=== PATIENT | male | born 1945 | race Native Hawaiian/Other Pacific Islander ===

== ENCOUNTER 2017-01-09 15:01 | Observation (INO) | payer MEDICARE, MEDICAID ==
[~2017-01-09] VITALS: Ht 172.7 cm; Wt 79.0 kg
[~2017-01-09 15:01] MED LIST: 1-ME1LIQ PO; ASPI81TA82 PO; CARV25TA PO; LOSA50TA PO; MACR100C PO; OMEP20TA PO; PRAS10TA PO; RANO500 PO; ROSU20 PO; SYNT25TA PO; XANA0.5T PO
[2017-01-09 15:02] VITALS: BP 116/67; PULSE 64; RESP 16; TEMP 98.6; O2SAT 99
--- NOTE | 2017-01-09 15:16 | PD ---
Physical Exam Date Seen by Provider: Jan 09, 2017 Time Seen by Provider: 15:12 Narrative 71 YOIM C/O FEELING FAINT. I MONTH AGO SYNCOPE SEEN AT [facility]. H/O CAD WITH STENT 3 YR AGO. NOW WITH CP FOR 30 MINS. PAIN 7/10 SHARP VS REVIEWED WAITING FOR BED PLACEMENT Data Data Last Documented VS Vital Signs Date Time Temp Pulse Resp B/P Pulse Ox O2 Delivery O2 Flow Rate FiO2 01/09/17 15:02 98.6 64 16 116/67 99 Room Air MDM Supervised Visit with HOWARD: Ricardo De León Jan 09, 2017 15:15
[2017-01-09] MEDS ORDERED: SODIUM CHLORIDE 0.9% FLUSH 10 ML FLUSH IVF PRN (15:30)
--- NOTE | 2017-01-09 15:50 | RADRPT ---
EXAM DATE/TIME: 01/09/2017 15:34 [place] COMPARISON: No previous studies available for comparison. INDICATIONS : Chest pain. MEDICAL HISTORY : None. SURGICAL HISTORY : Coronary artery stent. ENCOUNTER: Initial ACUITY: 2 weeks PAIN SCORE: 7/10 LOCATION: Left chest FINDINGS: A single view of the chest demonstrates the lungs to be symmetrically aerated without evidence of mas s, infiltrate or effusion. The cardiomediastinal contours are unremarkable. Osseous structures are intact. CONCLUSION: No acute disease. Fred Guerrero MD on January 09, 2017 at 15:47 Board Certified Radiologist. This report was verified electronically.
[2017-01-09 15:56] LABS: AUTOMATED NEUTROPHIL # 7.8 TH/MM3 (1.8-7.7); BASOPHIL % 0.3 % (0.0-2.0); EOSINOPHIL # 0.2 TH/MM3 (0-0.4); HEMATOCRIT 38.3 % (39.0-51.0); HEMO FLAGS DIFF FINAL; LYMPH % 18.8 % (9.0-44.0); LYMPHOCYTE # 2.1 TH/MM3 (1.0-4.8); MEAN CELL VOLUME 85.2 FL (80.0-100.0); MEAN CORPUSCULAR HEMOGLOBIN 29.9 PG (27.0-34.0); MEAN CORPUSCULAR HGB CONC 35.2 % (32.0-36.0); MONO % 8.6 % (0.0-8.0); NEUT % 70.3 % (16.0-70.0); PLATELET COUNT 178 TH/MM3 (150-450); RED CELL DISTRIBUTION WIDTH 13.7 % (11.6-17.2); WHITE BLOOD COUNT 11.2 TH/MM3 (4.0-11.0)
[2017-01-09 16:05] LABS: APTT (PATIENT) 28.2 SEC (24.3-30.1); PROTHROMBIN TIME - PATIENT 11.4 SEC (9.8-11.6)
[2017-01-09 16:08] LABS: ANION GAP 6 MEQ/L (5-15); BICARBONATE 28.7 MEQ/L (21.0-32.0); BLOOD UREA NITROGEN 15 MG/DL (7-18); CHLORIDE 104 MEQ/L (98-107); GLOMERULAR FILTRATION RATE 68 ML/MIN (>89); MAGNESIUM 2.2 MG/DL (1.5-2.5); SODIUM (NA) 139 MEQ/L (136-145)
[2017-01-09 16:12] LABS: CREATINE KINASE 491 U/L (39-308)
[2017-01-09 16:15] VITALS: BP_SYST 123; BP_SYST 126; BP_DIAS 71; BP_DIAS 77; PULSE 68; RESP 16; O2SAT 96
[2017-01-09 16:24] LABS: CKMB 1.9 NG/ML (0.5-3.6)
[2017-01-09] MEDS ORDERED: ASPIRIN 325 MG TAB PO ONE (16:30)
[2017-01-09] MEDS ORDERED: NITROGLYCERIN 0.4 MG SL 25 TABS/BTL SL ONE (16:30)
[2017-01-09 17:00] VITALS: BP 131/77; PULSE 60; RESP 16; O2SAT 98
--- NOTE | 2017-01-09 17:02 | PD ---
HPI Chief Complaint: Cardiac Complaint Time Seen by Provider: 16:57 Travel History International Travel<30 days: No Contact w/Intl Traveler<30days: No Traveled to known affect area: No History of Present Illness HPI 71-year-old male that presents to the evaluation of syncope and chest pain. Per patient he had an episode like this about a month ago. Per patient he was admitted to [facility] he actually comes here with PAPERWORK and reports from the [facility] admission and had CT and imaging studies were essentially unremarkable. Echo was a little bit abnormal but no sign of ischemia or any sign of disease. No obvious stress test noted on the report. Apparently patient had a significant syncopal episode and was admitted for this. Patient states that he's been feeling fine until today when he was going to a commercial area and he started to feel like he was given a passout. Per patient he was able to sit down and then he felt fine. Ambulance evaluated him and offered him to come to the hospital but he declined and wanted to go home. Patient drove himself and when he got home he started to felt dizzy again but this time he had chest pain. Per patient she's never had the chest pain before and he does have a significant history of heart disease including having stents placed about 3 years ago. He states that he continues to have the chest pain but is not as significant as he used to be before he came here. Per patient and sharp. Does not radiate. States that it does make him feel lightheaded. He does have a slight headache. He denies any head injury. No falls. No shortness of breath. He follows with Dr. Bullock. [facility] Past Medical History Hx Anticoagulant Therapy: Yes (ASA) Anxiety: Yes Depression: No Heart Rhythm Problems: No Cancer: No Cardiac Catheterization: Yes Cardiovascular Problems: Yes High Cholesterol: Yes Congestive Heart Failure: No Diminished Hearing: No Endocrine: No GERD: Yes Hypertension: Yes Immune Disorder: No Kidney Stones: Yes Thyroid Disease: Yes (HYPO) PNEUMOCCOCAL Vaccine (Year): 2 Past Surgical History Coronary Artery Bypass Graft: No Coronary Stent: Yes (X1) Other Surgery: No Social History Alcohol Use: No Tobacco Use: No Substance Use: No Allergies-Medications (Allergen,Severity, Reaction): Coded Allergies: No Known Allergies (Verified , 01/09/17) Reported Meds & Prescriptions Reported Meds & Active Scripts Active Macrobid (Nitrofurantoin Macrocrystals) 100 Mg Cap 100 Mg PO BID 10 Days Reported Xanax 0.5 mg (Alprazolam) Alprazolam 0.5 mg Tab 1 Tab PO DAILY Omeprazole 20 mg (Omeprazole) 20 Mg Tab 1 Tab PO DAILY Carvedilol 25 mg (Carvedilol) 25 Mg Tab 1 Tab PO BID Losartan Potassium 50 MG (Losartan Potassium) 50 Mg Tab 50 Mg PO DAILY Crestor (Rosuvastatin Calcium) 20 Mg Tab 20 Mg PO HS Synthroid 25 mcg (Levothyroxine Sodium) 25 Mcg Tab 25 Mcg PO DAILY Ranexa 500 mg (Ranolazine) 500 Mg Tab 1 Tab PO BID Effient (Prasugrel) 10 Mg Tab 10 Mg PO DAILY Aspir-81 (Aspirin) 81 Mg Tab 81 Mg PO DAILY Amlodipine Besylate 10 mg (Amlodipine Besylate) 10 Mg Tab 1 Tab PO DAILY Review of Systems Except as stated in HPI: all other systems reviewed are Neg Physical Exam Narrative GENERAL: SKIN: Warm and dry. HEAD: Atraumatic. Normocephalic. EYES: Pupils equal and round. No scleral icterus. No injection or drainage. ENT: No nasal bleeding or discharge. Mucous membranes pink and moist. Tongue is midline. No uvula deviation. NECK: Trachea midline. No JVD. CARDIOVASCULAR: Regular rate and rhythm. No murmurs, S3, S4. Chest pain is not reproducible with touch. RESPIRATORY: No accessory muscle use. Clear to auscultation. Breath sounds equal bilaterally. GASTROINTESTINAL: Abdomen soft, non-tender, nondistended. Hepatic and splenic margins not palpable. MUSCULOSKELETAL: Extremities without clubbing, cyanosis, or edema. No obvious deformities. Full range of motion of the upper and lower extremities bilaterally. 2+ pulses bilaterally. NEUROLOGICAL: Awake and alert. No obvious cranial nerve deficits. Motor grossly within normal limits. Five out of 5 muscle strength in the arms and legs. Normal speech. PSYCHIATRIC: Appropriate mood and affect; insight and judgment normal. Data Data Last Documented VS Vital Signs Date Time Temp Pulse Resp B/P Pulse Ox O2 Delivery O2 Flow Rate FiO2 01/09/17 16:18 63 14 97 Room Air 01/09/17 16:15 123/71 126/77 01/09/17 15:02 98.6 Orders Electrocardiogram (01/09/17 15:16) Basic Metabolic Panel (Bmp) (01/09/17 15:16) Ckmb (Isoenzyme) Profile (01/09/17 15:16) Complete Blood Count With Diff (01/09/17 15:16) Magnesium (Mg) (01/09/17 15:16) Prothrombin Time / Inr (Pt) (01/09/17 15:16) Act Partial Throm Time (Ptt) (01/09/17 15:16) Troponin I (01/09/17 15:16) Chest, Single Ap (01/09/17 15:16) Ecg Monitoring (01/09/17 15:16) Bilateral Bp Monitoring (01/09/17 15:16) Iv Access Insert/Monitor (01/09/17 15:16) Oximetry (01/09/17 15:16) Oxygen Administration (01/09/17 15:16) Sodium Chloride 0.9% Flush (Ns Flush) (01/09/17 15:30) CKMB (01/09/17 15:40) CKMB% (01/09/17 15:40) Aspirin (Aspirin) (01/09/17 16:30) Nitroglycerin Sl (Nitrostat Sl) (01/09/17 16:30) Nitroglycerin 2% Oint (Nitroglycerin 2% (01/09/17 17:45) Admit Order (Ed Use Only) (01/09/17 18:00) Vital Signs (Adult) Q4H (01/09/17 18:08) Neuro Checks Q4H (01/09/17 18:08) Activity Bed Rest With Brp (01/09/17 18:08) Hand Sample Maker / Telemetry .CONTINUOUS (01/09/17 18:08) Diet Heart Healthy (01/09/17 Dinner) Sodium Chloride 0.9% Flush (Ns Flush) (01/09/17 18:15) Sodium Chloride 0.9% Flush (Ns Flush) (01/09/17 21:00) Acetaminophen (Tylenol) (01/09/17 18:15) Ondansetron Inj (Zofran Inj) (01/09/17 18:15) Creatine Kinase (Cpk) (01/09/17 21:00) Creatine Kinase (Cpk) (01/10/17 03:00) Troponin I (8/16/17 21:00) Troponin I (01/10/17 03:00) Electrocardiogram (01/09/17 21:00) Electrocardiogram (01/10/17 03:00) Scd Bilateral/Knee High DENIA.BID (01/09/17 18:08) Naloxone Inj (Narcan Inj) (01/09/17 18:15) Docusate Sodium-Senna (Brooke-Colace) (01/09/17 21:00) Magnesium Hydroxide Liq (Milk Of Magnesi (01/09/17 18:15) Sennosides (Senokot) (01/09/17 18:15) Bisacodyl Supp (Dulcolax Supp) (01/09/17 18:15) Lactulose Liq (Lactulose Liq) (01/09/17 18:15) Labs Laboratory Tests Test 01/09/17 15:40 White Blood Count 11.2 TH/MM3 Red Blood Count 4.50 MIL/MM3 Hemoglobin 13.5 GM/DL Hematocrit 38.3 % Mean Corpuscular Volume 85.2 FL Mean Corpuscular Hemoglobin 29.9 PG Mean Corpuscular Hemoglobin 35.2 % Concent Red Cell Distribution Width 13.7 % Platelet Count 178 TH/MM3 Mean Platelet Volume 8.6 FL Neutrophils (%) (Auto) 70.3 % Lymphocytes (%) (Auto) 18.8 % Monocytes (%) (Auto) 8.6 % Eosinophils (%) (Auto) 2.0 % Basophils (%) (Auto) 0.3 % Neutrophils # (Auto) 7.8 TH/MM3 Lymphocytes # (Auto) 2.1 TH/MM3 Monocytes # (Auto) 1.0 TH/MM3 Eosinophils # (Auto) 0.2 TH/MM3 Basophils # (Auto) 0.0 TH/MM3 CBC Comment DIFF FINAL Differential Comment Prothrombin Time 11.4 SEC Prothromb Time International 1.0 RATIO Ratio Activated Partial 28.2 SEC Thromboplast Time Sodium Level 139 MEQ/L Potassium Level 4.0 MEQ/L Chloride Level 104 MEQ/L Carbon Dioxide Level 28.7 MEQ/L Anion Gap 6 MEQ/L Blood Urea Nitrogen 15 MG/DL Creatinine 1.07 MG/DL Estimat Glomerular Filtration 68 ML/MIN Rate Random Glucose 114 MG/DL Calcium Level 8.8 MG/DL Magnesium Level 2.2 MG/DL Total Creatine Kinase 491 U/L Creatine Kinase MB 1.9 NG/ML Creatine Kinase MB % 0.4 % Troponin I LESS THAN 0.02 NG/ML MDM Medical Decision Making Medical Screen Exam Complete: Yes Emergency Medical Condition: Yes Medical Record Reviewed: Yes Interpretation(s) CBC & BMP Diagram 01/09/17 15:40 Last Impressions Chest X-Ray 01/09/17 1516 Signed Impressions: Service Date/Time: Monday, January 09, 2017 15:34 - CONCLUSION: No acute disease. Fred Guerrero MD EKG shows sinus Differential Diagnosis Chest pain versus atypical chest pain versus ACS versus syncope versus presyncope Narrative Course 71-year-old male that presents to the ED for evaluation of chest pain and presyncope. Patient was properly examined and was found to have signs and symptoms concerning for ACS. Patient does have history of ACS and has a history of high cholesterol, hypertension as well as old history of smoking. Labs and imaging were done. Labs and imaging show no sign of acute disease. EKG did not show any sign of acute ischemia or arrhythmia. Case was discussed in my attending who was made aware of all findings and recommends admission for further chest pain workup. Patient did have a syncopal episode related to chest pain. Patient will be admitted to medicine as he might require more workup than just chest pain. I discussed this with my attending who agrees with plan. Case was discussed with Dr. Chowdary who was made aware of this and agrees with admission. He recommended that with the patient nitro paste. I did discuss this with the patient who is in agreement with admission but he did request that if he does have to have a hard To have Dr. Hill evaluate him. Procedures EKG Prior to Arrival: No Diagnosis Primary Impression: Syncope Qualified Code: R55 - Syncope, unspecified syncope type Additional Impression: Chest pain Qualified Code: R07.9 - Chest pain, unspecified type Admitting Information Admitting Physician Requests: Admit Joe Jennings Jan 09, 2017 17:02
[2017-01-09] MEDS ORDERED: NITROGLYCERIN 2% OINT 1 GM PACKET TOPICAL ONE (17:45)
[2017-01-09] MEDS ORDERED: SODIUM CHLORIDE 0.9% FLUSH 10 ML FLUSH IV FLUSH PRN (18:15)
[2017-01-09] MEDS ORDERED: LACTULOSE SYRUP 20 GM/30 ML CUP PO PRN (18:15)
[2017-01-09] MEDS ORDERED: NALOXONE HCL 0.4 MG/ML AMP IV PRN (18:15)
[2017-01-09] MEDS ORDERED: MAGNESIUM HYDROXIDE SUSP 30 ML CUP PO PRN (18:15)
[2017-01-09] MEDS ORDERED: SENNOSIDES 8.6 MG TAB PO PRN (18:15)
[2017-01-09] MEDS ORDERED: BISACODYL 10 MG SUPP RECTAL PRN (18:15)
[2017-01-09] MEDS ORDERED: ONDANSETRON HCL 4 MG/2 ML VIAL IVP PRN (18:15)
[2017-01-09] MEDS ORDERED: ACETAMINOPHEN 325 MG TAB PO PRN (18:15)
[2017-01-09] MEDS ORDERED: ROSU20 PO (18:16)
[2017-01-09] MEDS ORDERED: PRAS10TA PO (18:16)
[2017-01-09] MEDS ORDERED: LEVO50TA4 PO (18:16)
[2017-01-09] MEDS ORDERED: RANO500 PO (18:16)
[2017-01-09] MEDS ORDERED: LOSA100T PO (18:16)
[2017-01-09] MEDS ORDERED: ASPI81CH37 CHEW (18:16)
[2017-01-09] MEDS ORDERED: NITR0.4S SL (18:16)
[2017-01-09] MEDS ORDERED: CORE25TA PO (18:16)
[2017-01-09] MEDS ORDERED: AMLO10TA2 PO (18:16)
[2017-01-09] MEDS ORDERED: OMEP20TA PO (18:16)
[2017-01-09] MEDS ORDERED: LATA0.002 EACH EYE (18:16)
--- NOTE | 2017-01-09 18:39 | HHI.HP ---
[facility] Keron Rudolph, DO Admission Diagnosis Syncope, chest pain, r/o ACS Diagnoses: Chief Complaint: Chest pain, dizziness Travel History International Travel<30 Days: No Contact w/Intl Traveler <30 Da: No Traveled to Known Affected Are: No History of Present Illness This a pleasant 71-year-old male with significant past medical history coronary artery disease and prior stent, hypertension, hyperlipidemia. Patient is somewhat of a poor historian, information is obtained from him as well as from review of records from [facility] and emergency room record. Patient indicates that approximately 3 weeks ago he was admitted to [facility] for syncopal episode and underwent workup. He did bring some of the paperwork with him and apparently had an echocardiogram that shows some diastolic heart dysfunction and EF of 55%. CT of the head was negative, carotid ultrasound did not show any stenosis. EEG was negative for any seizures. Patient had no further episodes and was discharged in stable condition. Indicates that his inspector bullet slugs is Dr. Joseph however he is requesting Dr. Santos. Per review of medical records, Dr. Santos saw him back in 2014. Today, while patient was walking to accompany his brother to a doctor's office he had an episode where he felt dizzy, he did not pass out, his brother helped him down to the floor. EMS was called however patient did not want to come and called his son who took him home. While at home, patient had another dizzy spell however this time he developed sharp chest pain over the left breast none radiation, rated at a 7 and 8 associated with diaphoresis, shortness of breath and a mild headache. Indicates that the pain went down to a 6 on its own. At that time, his son brought him to this facility where he had another episode. Indicates that the pain was relieved with nitroglycerin and aspirin. Patient indicates that he had a significant myocardial infarction approximately in 2014, at [facility] [place] and had a stent placed. He had another episode of chest pain a few weeks after that AR and was seen by Dr. Santos at [facility] who did a stress test that was negative, Ranexa was added. Patient denies any chest pain at this time, no shortness of breath. Believes he may have had another stress test , however he's not sure when. Indicates that he was told by Dr. Rudolph that he may have some memory problems and was prescribed a new medication however he' s not able to recall the name. He denies any fever, no chills. Patient is mildly reproducible with palpation. Laboratory workup completed is unremarkable , troponin negative. EKG did not reveal any acute ST segment elevation. Patient is admitted for further evaluation and treatment. Review of Systems ROS Limitations: Poor Historian Constitutional: COMPLAINS OF: Diaphoretic episodes, Dizziness, DENIES: Fatigue , Fever, Weight gain, Weight loss, Chills, Change in appetite, Night Sweats Endocrine: DENIES: Heat/cold intolerance, Polydipsia, Polyuria, Polyphagia Eyes: DENIES: Blurred vision, Diplopia, Eye inflammation, Eye pain, Vision loss , Photosensitivity, Double Vision Ears, nose, mouth, throat: DENIES: Tinnitus, Hearing loss, Vertigo, Nasal discharge, Oral lesions, Throat pain, Hoarseness, Ear Pain, Running Nose, Epistaxis, Sinus Pain, Toothache, Odynophagia Respiratory: DENIES: Apneas, Cough, Snoring, Wheezing, Hemoptysis, Sputum production, Shortness of breath Cardiovascular: COMPLAINS OF: Chest pain, DENIES: Palpitations, Syncope, Dyspnea on Exertion, PND, Lower Extremity Edema, Orthopnea, Claudication Gastrointestinal: DENIES: Abdominal pain, Black stools, Bloody stools, Constipation, Diarrhea, Nausea, Vomiting, Difficulty Swallowing, Anorexia Genitourinary: DENIES: Sexual dysfunction, Urinary frequency, Urinary incontinence, Urgency, Hematuria, Dysuria, Nocturia, Penile Discharge, Testicular Pain, Testicular Swelling Musculoskeletal: DENIES: Joint pain, Muscle aches, Stiffness, Joint Swelling, Back pain, Neck pain Integumentary: DENIES: Abnormal pigmentation, Nail changes, Pruritus, Rash Hematologic/lymphatic: DENIES: Bruising, Lymphadenopathy Immunologic/allergic: DENIES: Eczema, Urticaria Neurologic: COMPLAINS OF: Headache, DENIES: Abnormal gait, Localized weakness , Paresthesias, Seizures, Speech Problems, Tremor, Poor Balance Psychiatric: DENIES: Anxiety, Confusion, Mood changes, Depression, Hallucinations, Agitation, Suicidal Ideation, Homicidal Ideation, Delusions Past Family Social History Past Medical History Coronary artery disease, status post myocardial infarction with stent in 2015 Recent admission of [facility] for syncopal episode, had neuro workup that was negative. Possible memory deficits, was recently put on medication but is not able to recall Hyperlipidemia Glaucoma Hypothyroid GERD Past Surgical History Cardiac catheter with stent in 2015 Reported Medications Reported Meds & Active Scripts Active Reported Crestor (Rosuvastatin Calcium) 20 Mg Tab 20 Mg PO HS Ranexa ER 12 HR (Ranolazine) 500 Mg Tab 500 Mg PO BID Effient (Prasugrel) 10 Mg Tab 10 Mg PO DAILY Omeprazole 20 Mg Tab 20 Mg PO DAILY Nitrostat SL (Nitroglycerin) 0.4 Mg Subl 0.4 Mg SL DIRECTED PRN 1 tablet under the tongue as needed for chest pain. Repeat every 5 minutes for a total of 3 DOSES or call 911 if NO relief. Losartan (Losartan Potassium) 100 Mg Tab 100 Mg PO DAILY Levothyroxine (Levothyroxine Sodium) 50 Mcg Tab 50 Mcg PO DAILY Latanoprost Opth Drops (Latanoprost) 0.005% Drops 1 Drop EACH EYE HS Refrigerate until opened. Coreg (Carvedilol) 25 Mg Tab 25 Mg PO BID Aspirin Low Dose (Aspirin) 81 Mg Chew 81 Mg CHEW DAILY Amlodipine (Amlodipine Besylate) 10 Mg Tab 10 Mg PO DAILY Allergies: Coded Allergies: No Known Allergies (Verified , 01/09/17) Active Ordered Medications Last Impressions Chest X-Ray 01/09/17 1706 Signed Impressions: Service Date/Time: Monday, January 09, 2017 15:34 - CONCLUSION: No acute disease. Fred Guerrero MD Family History Significant for strong family history of coronary artery disease, father and mother both from myocardial infarction. Father at age 51, one brother from sudden cardiac at age 44. Another brother had CABG. Social History Patient is retired, lives at home with his family. Smoked many years ago, no alcohol, no substance abuse. Physical Exam Vital Signs Vital Signs Date Time Temp Pulse Resp B/P Pulse Ox O2 Delivery O2 Flow Rate FiO2 01/09/17 17:00 60 16 131/77 98 Room Air 01/09/17 16:18 63 14 97 Room Air 01/09/17 16:15 68 16 123/71 96 Room Air 126/77 01/09/17 16:15 96 Room Air 01/09/17 16:15 96 Room Air 01/09/17 15:02 98.6 64 16 116/67 99 Room Air Physical Exam GENERAL: This is a well-nourished, well-developed patient, in no apparent distress. SKIN: No rashes, ecchymoses or lesions. Cool and dry. HEAD: Atraumatic. Normocephalic. No temporal or scalp tenderness. EYES: Pupils equal round and reactive. Extraocular motions intact. No scleral icterus. No injection or drainage. ENT: Nose without bleeding, purulent drainage or septal hematoma. Throat without erythema, tonsillar hypertrophy or exudate. Uvula midline. Airway patent. NECK: Trachea midline. No JVD or lymphadenopathy. Supple, nontender, no meningeal signs. CARDIOVASCULAR: Regular rate and rhythm without murmurs, gallops, or rubs. RESPIRATORY: Clear to auscultation. Breath sounds equal bilaterally. No wheezes , rales, or rhonchi. GASTROINTESTINAL: Abdomen soft, non-tender, nondistended. No hepato-splenomegaly , or palpable masses. No guarding. MUSCULOSKELETAL: Extremities without clubbing, cyanosis, or edema. No joint tenderness, effusion, or edema noted. No calf tenderness. Negative Homans sign bilaterally. NEUROLOGICAL: Awake and alert. Cranial nerves II through XII intact. Motor and sensory grossly within normal limits. Five out of 5 muscle strength in all muscle groups. Normal speech. Laboratory Laboratory Tests Test 01/09/17 15:40 White Blood Count 11.2 Red Blood Count 4.50 Hemoglobin 13.5 Hematocrit 38.3 Mean Corpuscular Volume 85.2 Mean Corpuscular Hemoglobin 29.9 Mean Corpuscular Hemoglobin 35.2 Concent Red Cell Distribution Width 13.7 Platelet Count 178 Mean Platelet Volume 8.6 Neutrophils (%) (Auto) 70.3 Lymphocytes (%) (Auto) 18.8 Monocytes (%) (Auto) 8.6 Eosinophils (%) (Auto) 2.0 Basophils (%) (Auto) 0.3 Neutrophils # (Auto) 7.8 Lymphocytes # (Auto) 2.1 Monocytes # (Auto) 1.0 Eosinophils # (Auto) 0.2 Basophils # (Auto) 0.0 CBC Comment DIFF FINAL Differential Comment Prothrombin Time 11.4 Prothromb Time International 1.0 Ratio Activated Partial 28.2 Thromboplast Time Sodium Level 139 Potassium Level 4.0 Chloride Level 104 Carbon Dioxide Level 28.7 Anion Gap 6 Blood Urea Nitrogen 15 Creatinine 1.07 Estimat Glomerular Filtration 68 Rate Random Glucose 114 Calcium Level 8.8 Magnesium Level 2.2 Total Creatine Kinase 491 Creatine Kinase MB 1.9 Creatine Kinase MB % 0.4 Troponin I LESS THAN 0.02 Result Diagram: 01/09/17 1540 01/09/17 1540 Imaging Last Impressions Chest X-Ray 01/09/17 1516 Signed Impressions: Service Date/Time: Monday, January 09, 2017 15:34 - CONCLUSION: No acute disease. Fred Guerrero MD Assessment and Plan Problem List: (1) Chest pain (2) Syncope (3) CAD (coronary artery disease) (4) Hyperlipidemia (5) HTN (hypertension) (6) Hypothyroid Assessment and Plan Admit to Dr. Redman 71-year-old male with significant past medical history of coronary artery disease, myocardial infarction and prior stent. Presented to the emergency room with complaint of dizziness, near syncopal episode and chest pain. Chest pain, rule out acute coronary syndrome. Coronary disease with prior myocardial infarctions and stent -Continue trending serial troponin Continuous cardiac telemetry -Continue Ranexa, aspirin, and Coreg. -Continue with Effient and Ranexa Near syncopal episode, had recent admission for same without any significant findings Orthostatics every shift 3 Continuous cardiac telemetry Patient had recent carotid ultrasound that did not reveal any significant findings Had an echo that showed EF 55% and diastolic heart dysfunction Hypertension, stable continue with home medications, Norvasc, Cozaar Hypothyroid Continue with Synthroid Hyperlipidemia Continue with Lipitor Possible memory problems, has been started on a new medication however not able to recall Patient will obtain medication list from home and provide information Continue Protonix for GI prophylaxis Home medications reviewed, initiated as indicated Plan of care has been discussed with the patient, attending and registered nurse. Further management of the patient will be dependent on the hospital course This patient was seen by myself and Dr. Redman, this H&P is written on his behalf Problem Qualifiers (1) Chest pain: Qualified Code: R07.9 - Chest pain, unspecified type (2) Syncope: Qualified Code: R55 - Syncope, unspecified syncope type (3) CAD (coronary artery disease): Qualified Code: I25.118 - Coronary artery disease of [place] artery of [place] heart with stable angina pectoris (4) Hyperlipidemia: Qualified Code: E78.5 - Hyperlipidemia, unspecified hyperlipidemia type (5) HTN (hypertension): Qualified Code: I10 - Essential hypertension (6) Hypothyroid: Qualified Code: E03.9 - Hypothyroidism, unspecified type Maria Elena Mancini Jan 09, 2017 18:39
[2017-01-09] MEDS: RANOLAZINE 500 MG EXTENDED RELEASE TAB PO SCH (21:00)
[2017-01-09] MEDS: SODIUM CHLORIDE 0.9% FLUSH 10 ML FLUSH IV FLUSH SCH (21:00)
[2017-01-09] MEDS ORDERED: ATORVASTATIN 40 MG TAB PO SCH (21:00)
[2017-01-09] MEDS: DOCUSATE SODIUM 50 MG/SENNA 8.6 MG TAB PO SCH (21:00)
[2017-01-09] MEDS ORDERED: LATANOPROST 0.005% OPHT SOLN 2.5 ML BTL EACH EYE SCH (21:00)
[2017-01-09] MEDS: CARVEDILOL 12.5 MG TAB PO SCH (22:53)
[2017-01-09 23:40] LABS: CREATINE KINASE 508 U/L (39-308)
[2017-01-09 23:55] LABS: CKMB 1.8 NG/ML (0.5-3.6)
[2017-01-10] VITALS (7 sets, daily range): BP systolic 101–145; BP diastolic 54–82; PULSE 54–80; RESP 18–20; TEMP 97.3–98.7; O2SAT 95–97
[2017-01-10 04:07] LABS: CREATINE KINASE 368 U/L (39-308)
[2017-01-10 04:19] LABS: CKMB 1.8 NG/ML (0.5-3.6)
[2017-01-10] MEDS ORDERED: LEVOTHYROXINE SODIUM 50 MCG TAB PO SCH (06:00)
--- NOTE | 2017-01-10 08:36 | HHI.PR ---
Subjective Remarks denies any further chest pain since last pm positive for leg cramps No SOB afebrile (Anya Jiang) Objective Objective Results - Vital Signs Date Time Temp Pulse Resp B/P Pulse Ox O2 Delivery O2 Flow Rate FiO2 01/10/17 03:37 98.7 67 20 116/63 97 111/55 118/64 01/10/17 01:13 54 01/10/17 01:11 98.4 80 18 101/54 96 01/09/17 19:50 Room Air 01/09/17 19:50 Room Air 01/09/17 19:50 Room Air 01/09/17 17:00 60 16 131/77 98 Room Air 01/09/17 16:18 63 14 97 Room Air 01/09/17 16:15 68 16 123/71 96 Room Air 126/77 01/09/17 16:15 96 Room Air 01/09/17 16:15 96 Room Air 01/09/17 15:02 98.6 64 16 116/67 99 Room Air (Anya Jiang) Result Diagram: 01/09/17 1540 01/09/17 1540 ROS General: Fatigue, Weakness, Other (10 point ROS done) Cardiac: Chest Pain (controlled) Neuro/MS: Other (leg cramps worse at rest. ) (Anya Jiang) Physical Exam Physical Exam PHYSICAL EXAMINATION GENERAL: This is a well-developed, well-nourished [place] male who appears to be in no acute distress. He is awake,talkative HEAD: Normocephalic without any lesion or mass noted. Facial features appear symmetric. OROPHARYNGEAL: Oropharynx without erythema or edema. NECK: Supple. No nuchal rigidity or lymphadenopathy. Trachea midline without deviation. CARDIAC: Regular rhythm, regular rate, S1 and S2 are heard. LUNGS: Clear to auscultation bilaterally. No use of accessory muscles on inspiration or expiration. ABDOMEN: Soft, nontender, no organomegaly or masses. Bowel sounds are heard in all four quadrants. No rebound. No guarding. EXTREMITIES: no edema. Pulses equal bilateral. NEUROLOGICAL: Patient mood and affect appropriate.No syncope noted SKIN:Warm and moist (Anya Jiang) A/P Assessment and Plan Problem List: (1) Chest pain (2) Syncope (3) CAD (coronary artery disease) (4) Hyperlipidemia (5) HTN (hypertension) (6) Hypothyroid vital signs reviewed. trends normal lab reviewed, mild leukocytosis, borderline BS, 144, no DM, chest pain, troponins negative, Cardiology consult pending, only gice few sips water, no food for possible pending tests. telemetry SR known CAD, stents 2013, last event , medical management No syncope noted, orthostatic BP trends within normal range Monitor activity, heart health diet, Pain management , further cardiac testing leg cramps, chronic last 4 months, but unknown medical management with his PCP. Patient is on statins. DVT , PPI prophylaxis D/W patient D/W nurse D/W DR. Redman, seen on his behalf (Anya Jiang) Assessment and Plan seen, examined by myself, Dr Redman, today Discussed with patient Discussed with mid level provider The exam, history, and the medical decision-making described in the above note were completed with the assistance of the mid-level provider. I reviewed the findings presented. I attest that I had a [id number] encounter with the patient on the same day, and personally performed and documented my assessment and findings in the medical record Discussed with interventional physiatrist Reduce losartan dose to 50 mg daily Follow-up with cardiology next week. 40 minutes (Lara Redman MD) Anya Jiang Jan 10, 2017 08:36 Lara Redman MD Jan 10, 2017 18:55
[2017-01-10] MEDS ORDERED: PRASUGREL 10 MG TAB PO SCH (09:00)
[2017-01-10] MEDS: DOCUSATE SODIUM 50 MG/SENNA 8.6 MG TAB PO SCH (09:00)
[2017-01-10] MEDS ORDERED: PANTOPRAZOLE SOD 20 MG DELAYED RELEASE TAB PO SCH (09:00)
[2017-01-10] MEDS ORDERED: LOSARTAN 50 MG TAB PO SCH (09:00)
[2017-01-10] MEDS: CARVEDILOL 12.5 MG TAB PO SCH (09:00)
[2017-01-10] MEDS ORDERED: ASPIRIN 81 MG CHEW TAB CHEW SCH (09:00)
--- NOTE | 2017-01-10 09:00 | EKG ---
Date Performed: 01/10/2017 Time Performed: 03:51:49 PTAGE: 71 years EKG: Sinus rhythm WITH FIRST DEGREE AV BLOCK LOW QRS VOLTAGE IN PRECORDIAL LEADS ANTEROSEPTAL MYOCARDIAL INFARCTION AB NORMAL ECG PREVIOUS TRACING : 01/09/2017 22.17 Compared to prior tracing no significant change DOCTOR: You Mendoza Interpretating Date/Time 01/10/2017 08:55:31
--- NOTE | 2017-01-10 09:06 | EKG ---
Date Performed: 01/09/2017 Time Performed: 22:17:52 PTAGE: 71 years EKG: Sinus rhythm LOW QRS VOLTAGE IN PRECORDIAL LEADS ANTEROSEPTAL MYOCARDIAL INFARCTION ABNORMAL ECG PREVIOUS TRACING : 01/09/2017 15.29 Compared to prior tracing no significant change DOCTOR: You Mendoza Interpretating Date/Time 01/10/2017 09:00:01
--- NOTE | 2017-01-10 09:17 | EKG ---
Date Performed: 01/09/2017 Time Performed: 15:29:37 PTAGE: 71 years EKG: Compared to prior tracing no significant change Sinus rhythm LOW QRS VOLTAGE IN PRECORDIAL LEADS SEPTAL MYOCARDIAL INFARCTION ABNORMAL ECG PREVIOUS TRACING : 07/18/2011 23.27 DOCTOR: You Mendoza Interpretating Date/Time 01/10/2017 09:06:14
[2017-01-10] MEDS: RANOLAZINE 500 MG EXTENDED RELEASE TAB PO SCH (10:30)
[2017-01-10] MEDS: SODIUM CHLORIDE 0.9% FLUSH 10 ML FLUSH IV FLUSH SCH (10:33)
--- NOTE | 2017-01-10 15:10 | PD.CONS ---
HPI Service Cardiology Consult Requested By Hospitalist Reason for Consult Near Syncope/CP Primary Care Physician Keron Rudolph, DO History of Present Illness Mr. Lloyd is a pleasant 71 year [address] known to Dr. Santos. He has a history of CAD S/P stenting , hypertension, hyperlipidemia and hypothyroidism. He was recently admitted to [facility] with complaints of syncope. Work up at that time was negative. Yesterday he was taking his brother to the doctor and after walking across the parking lot became hot and experienced lower extremity weakness. He sat down on the curb, leaned back to rest, he did not lose consciousness. EMS came to evaluate him and per the patient reported everything was okay. He called his son to take him home. At home, he again felt a little dizzy, so he came to the ED for further evaluation. Upon arrival, he reports some left sided chest discomfort. This was relieved with nitro and aspirin. He denies any associated symptoms. He denies shortness of breath, palpitations. Recent echo with diastolic dysfunction, normal LV systolic function with EF >55%, mild to moderate aortic sclerosis with no stenosis. Recent carotid doppler with no significant hemodynamically significant stenosis. Recent CT head was negative. Troponin levels have been negative. Orthostatic BP's unremarkable. EKG did not reveal any acute ST segment elevation. He has had no further complaints of chest pain. He is currently sitting up in bed without distress. Denies any needs. Review of Systems Consitutional: DENIES: Fatigue, Fever, Chills, Weight gain, Weight loss Eyes: COMPLAINS OF: Amaurosis Fugax, DENIES: Change in vision HEENT: COMPLAINS OF: Lightheadedness Respiratory: DENIES: See HPI, Cough, Snoring, Shortness of breath, Wheezing, Sputum production Cardiovascular: COMPLAINS OF: Chest pain, DENIES: See HPI, Palpitations, Syncope, Tachycardia Gastrointestinal: DENIES: Nausea, Vomiting, Change in bowel habits, Reflux, Bloody stools, Melena Genitourinary: DENIES: Urinary incontinence, Difficulty voiding Integumentary: DENIES: Rash Neurologic: COMPLAINS OF: Memory problems, DENIES: Tingling or numbness, Poor Balance, Stroke symptoms Musculoskeletal: DENIES: Joint pain, Muscle pain, Limited range of motion, Back pain Psychiatric: DENIES: Anxiety, Depression, Sleep disturbances Hematologic: DENIES: Bruising tendencies, Bleeding tendencies Endocrine: DENIES: Weight gain, Weight loss Past Family Social History Allergies: Coded Allergies: No Known Allergies (Verified , 01/09/17) Past Medical History CAD S/P MN, S/P Stenting Hypertension Hyperlipidemia Syncope Hypothyroidism Past Surgical History Left heart cath Reported Medications Reported Meds & Active Scripts Active Reported Crestor (Rosuvastatin Calcium) 20 Mg Tab 20 Mg PO HS Ranexa ER 12 HR (Ranolazine) 500 Mg Tab 500 Mg PO BID Effient (Prasugrel) 10 Mg Tab 10 Mg PO DAILY Omeprazole 20 Mg Tab 20 Mg PO DAILY Nitrostat SL (Nitroglycerin) 0.4 Mg Subl 0.4 Mg SL DIRECTED PRN 1 tablet under the tongue as needed for chest pain. Repeat every 5 minutes for a total of 3 DOSES or call 911 if NO relief. Losartan (Losartan Potassium) 100 Mg Tab 100 Mg PO DAILY Levothyroxine (Levothyroxine Sodium) 50 Mcg Tab 50 Mcg PO DAILY Latanoprost Opth Drops (Latanoprost) 0.005% Drops 1 Drop EACH EYE HS Refrigerate until opened. Coreg (Carvedilol) 25 Mg Tab 25 Mg PO BID Aspirin Low Dose (Aspirin) 81 Mg Chew 81 Mg CHEW DAILY Amlodipine (Amlodipine Besylate) 10 Mg Tab 10 Mg PO DAILY Active Ordered Medications Current Medications Medications (Trade) Dose Ordered Sig/Ede Route Start Time Stop Time Status Last Admin (NS Flush) 2 ml UNSCH PRN IV FLUSH 01/09/17 18:15 (NS Flush) 2 ml BID IV FLUSH 01/09/17 21:00 01/10/17 10:33 (Tylenol) 650 mg Q4H PRN PO 01/09/17 18:15 (Zofran Inj) 4 mg Q6H PRN IVP 01/09/17 18:15 (Narcan Inj) 0.4 mg UNSCH PRN IV 01/09/17 18:15 (Brooke-Colace) 1 tab BID PO 01/09/17 21:00 (Milk Of Magnesia Liq) 30 ml Q12H PRN PO 01/09/17 18:15 (Senokot) 17.2 mg Q12H PRN PO 01/09/17 18:15 (Dulcolax Supp) 10 mg DAILY PRN RECTAL 01/09/17 18:15 (Lactulose Liq) 30 ml DAILY PRN PO 01/09/17 18:15 (Aspirin Chew) 81 mg DAILY CHEW 01/10/17 09:00 (Coreg) 25 mg BID PO 01/09/17 21:00 01/09/17 22:53 (Xalatan 0.005% Opth Soln) 1 drop HS EACH EYE 01/09/17 21:00 01/09/17 22:54 (Synthroid) 50 mcg DAILY@06 PO 01/10/17 06:00 01/10/17 05:54 (Cozaar) 100 mg DAILY PO 01/10/17 09:00 (Effient) 10 mg DAILY PO 01/10/17 09:00 01/10/17 10:30 (Ranexa) 500 mg BID PO 01/09/17 21:00 01/10/17 10:30 (Protonix) 20 mg DAILY PO 01/10/17 09:00 01/10/17 10:30 (Lipitor) 40 mg HS PO 01/09/17 21:00 01/09/17 22:54 Family History Mother and Brother with MN Social History Denies tobacco or ETOH use No illicit drug use Physical Exam Vital Signs Vital Signs Date Time Temp Pulse Resp B/P Pulse Ox O2 Delivery O2 Flow Rate FiO2 01/10/17 12:00 97.7 68 20 129/75 96 01/10/17 08:00 97.3 78 20 145/82 95 01/10/17 03:37 98.7 67 20 116/63 97 111/55 118/64 01/10/17 01:13 54 01/10/17 01:11 98.4 80 18 101/54 96 01/09/17 19:50 Room Air 01/09/17 19:50 Room Air 01/09/17 19:50 Room Air 01/09/17 17:00 60 16 131/77 98 Room Air 01/09/17 16:18 63 14 97 Room Air 01/09/17 16:15 68 16 123/71 96 Room Air 126/77 01/09/17 16:15 96 Room Air 01/09/17 16:15 96 Room Air 01/09/17 15:02 98.6 64 16 116/67 99 Room Air Physical Exam GENERAL: Awake, alert. No distress. SKIN: Warm and dry. HEAD: Atraumatic. Normocephalic. EYES: Pupils equal and round. No scleral icterus. No injection or drainage. ENT: No nasal bleeding or discharge. Mucous membranes pink and moist. NECK: Trachea midline. No JVD. CARDIOVASCULAR: Regular rate and rhythm. No murmurs, rubs or gallops. RESPIRATORY: No accessory muscle use. Clear to auscultation. Breath sounds equal bilaterally. GASTROINTESTINAL: Abdomen soft, non-tender, nondistended. MUSCULOSKELETAL: Extremities without clubbing, cyanosis, or edema. No obvious deformities. NEUROLOGICAL: Awake and alert. No obvious cranial nerve deficits. Motor grossly within normal limits. Five out of 5 muscle strength in the arms and legs. Normal speech. PSYCHIATRIC: Appropriate mood and affect; insight and judgment normal. Laboratory Laboratory Tests Test 01/09/17 01/09/17 01/10/17 15:40 22:00 03:20 White Blood Count 11.2 Red Blood Count 4.50 Hemoglobin 13.5 Hematocrit 38.3 Mean Corpuscular Volume 85.2 Mean Corpuscular Hemoglobin 29.9 Mean Corpuscular Hemoglobin 35.2 Concent Red Cell Distribution Width 13.7 Platelet Count 178 Mean Platelet Volume 8.6 Neutrophils (%) (Auto) 70.3 Lymphocytes (%) (Auto) 18.8 Monocytes (%) (Auto) 8.6 Eosinophils (%) (Auto) 2.0 Basophils (%) (Auto) 0.3 Neutrophils # (Auto) 7.8 Lymphocytes # (Auto) 2.1 Monocytes # (Auto) 1.0 Eosinophils # (Auto) 0.2 Basophils # (Auto) 0.0 CBC Comment DIFF FINAL Differential Comment Prothrombin Time 11.4 Prothromb Time International 1.0 Ratio Activated Partial 28.2 Thromboplast Time Sodium Level 139 Potassium Level 4.0 Chloride Level 104 Carbon Dioxide Level 28.7 Anion Gap 6 Blood Urea Nitrogen 15 Creatinine 1.07 Estimat Glomerular Filtration 68 Rate Random Glucose 114 Calcium Level 8.8 Magnesium Level 2.2 Total Creatine Kinase 491 508 368 Creatine Kinase MB 1.9 1.8 1.8 Creatine Kinase MB % 0.4 0.4 0.5 Troponin I LESS THAN 0.02 LESS THAN 0.02 LESS THAN 0.02 Result Diagram: 01/09/17 1540 01/09/17 1540 Imaging Last 24 hours Impressions Chest X-Ray 01/09/17 1516 Signed Impressions: Service Date/Time: Monday, January 09, 2017 15:34 - CONCLUSION: No acute disease. Fred Guerrero MD Assessment and Plan Assessment and Plan Neurocardiogenic Syncope CP History of CAD S/P Stenting Hypertension Hyperlipidemia Hypothyroidism Troponin levels have been negative. ACS ruled out. Symptoms suggestive of neurocardiogenic syncope. Hydration was reviewed. Will discontinue amlodipine. Continue aspirin, effient, beta gómez, ranexa, ARB, statin. May follow up as outpatient. Code Status Full Discussed Condition With Gladis Lai Jan 10, 2017 15:10
[2017-01-10] MEDS ORDERED: COZA50TA PO (15:17)
[2017-01-11] MEDS ORDERED: LOSARTAN 50 MG TAB PO SCH (09:00)
== END 2017-01-10 16:30 | disposition home or self-care (01) ==
LOC: NEPE 15:01 → NEDA 18:02 → INTOOBSV 18:02 → NEPFCDU 20:15
PROVIDERS: ADMIT Specialist; ATTEND Specialist
DX: R07.89 Other chest pain (principal); R55 Syncope and collapse; I10 Essential (primary) hypertension; E03.9 Hypothyroidism, unspecified; E78.5 Hyperlipidemia, unspecified; K21.9 Gastro-esophageal reflux disease without esophagitis; I25.2 Old myocardial infarction; H40.9 Unspecified glaucoma; I25.118 Atherosclerotic heart disease of native coronary artery with other forms of angina pectoris; Z95.5 Presence of coronary angioplasty implant and graft; D72.829 Elevated white blood cell count, unspecified; F41.9 Anxiety disorder, unspecified; Z87.891 Personal history of nicotine dependence; Z79.82 Long term (current) use of aspirin; Z79.899 Other long term (current) drug therapy
CPT/HCPCS: 71010; 80048; 82550; 82552; 83735; 84484; 85025; 85610; 85730; 93005; 99285; G0378

== ENCOUNTER 2017-03-08 18:36 | Emergency (ER) | payer OTHER, MEDICARE, MEDICAID ==
[~2017-03-08] VITALS: Ht 172.7 cm; Wt 70.0 kg
[~2017-03-08 18:36] MED LIST changes: -1-ME1LIQ PO; +AMLO10TA2 PO; +ASPI81CH37 CHEW; -ASPI81TA82 PO; -CARV25TA PO; +CORE25TA PO; +COZA50TA PO; +LATA0.002 EACH EYE; +LEVO50TA4 PO; -LOSA50TA PO; -MACR100C PO; +NITR0.4S SL; -SYNT25TA PO; -XANA0.5T PO
[2017-03-08 18:43] VITALS: BP 150/90; PULSE 80; RESP 15; TEMP 98.4; O2SAT 98
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
[2017-03-08] MEDS ORDERED: DIAZ5 PO (19:37)
[2017-03-08] MEDS ORDERED: TYLETAB34 PO (19:37)
[2017-03-08] MEDS ORDERED: DIAZEPAM 5 MG TAB PO ONE (19:45)
[2017-03-08] MEDS ORDERED: ACETAMINOPHEN/CODEINE 300 MG/30 MG TAB PO ONE (19:45)
== END 2017-03-08 20:14 | disposition home or self-care (01) ==
LOC: NEPD 18:36
DX: R42 Dizziness and giddiness (principal); I10 Essential (primary) hypertension; E78.5 Hyperlipidemia, unspecified; K21.9 Gastro-esophageal reflux disease without esophagitis; I25.2 Old myocardial infarction; Z79.01 Long term (current) use of anticoagulants; Z79.82 Long term (current) use of aspirin
CPT/HCPCS: 99284

== ENCOUNTER 2017-03-20 13:57 | Emergency (ER) | payer MEDICARE, OTHER ==
[~2017-03-20 13:57] MED LIST changes: +DIAZ5 PO; +TYLETAB34 PO
[2017-03-20 13:59] VITALS: BP 159/89; PULSE 61; RESP 16; TEMP 98; O2SAT 99
--- NOTE | 2017-03-20 14:40 | PD ---
HPI Chief Complaint: Laceration/Skin Injury Time Seen by Provider: 14:14 Travel History International Travel<30 days: No Contact w/Intl Traveler<30days: No Traveled to known affect area: No History of Present Illness HPI 71-year-old male presents emergency department with accidental laceration to his left volar wrist while cleaning a shopping cart at [employer]. This represents a metal on the cart which causes wrist. Patient has no loss of function, numbness, tingling, but does have consisting bleeding. Patient is up-to-date on his tetanus shot. He has no significant pain. No known drug allergies. PFSH Past Medical History Hx Anticoagulant Therapy: Yes (ASA) Blood Disorders: No Anxiety: No Depression: No Heart Rhythm Problems: No Cancer: No Cardiac Catheterization: Yes Cardiovascular Problems: Yes (ME 2011) High Cholesterol: Yes Chemotherapy: No Chest Pain: Yes Congestive Heart Failure: No Diabetes: No Diminished Hearing: No Endocrine: No GERD: Yes Genitourinary: No Heparin Induced Thrombocytopen: No Hypertension: Yes Immune Disorder: No Implanted Vascular Access Dvce: Yes (in eyes) Kidney Stones: Yes Musculoskeletal: No Neurologic: No Psychiatric: No Reproductive: No Respiratory: No Myocardial Infarction: Yes Radiation Therapy: No Thyroid Disease: Yes (HYPO) PNEUMOCCOCAL Vaccine (Year): 2 Past Surgical History Body Medical Devices: STENT X 1 Coronary Artery Bypass Graft: No Coronary Stent: Yes (X1) Eye Surgery: Yes Other Surgery: No Social History Alcohol Use: No Tobacco Use: No Substance Use: No Allergies-Medications (Allergen,Severity, Reaction): Coded Allergies: No Known Allergies (Verified , 03/20/17) Reported Meds & Prescriptions Reported Meds & Active Scripts Active Valium (Diazepam) 5 Mg Tab 5 Mg PO TID PRN Tylenol-Codeine #3 (Acetaminophen-Codeine) 300-30 mg Tab 1 Tab PO Q4H PRN Cozaar (Losartan Potassium) 50 Mg Tab 50 Mg PO DAILY Reported Crestor (Rosuvastatin Calcium) 20 Mg Tab 20 Mg PO HS Ranexa ER 12 HR (Ranolazine) 500 Mg Tab 500 Mg PO BID Effient (Prasugrel) 10 Mg Tab 10 Mg PO DAILY Omeprazole 20 Mg Tab 20 Mg PO DAILY Nitrostat SL (Nitroglycerin) 0.4 Mg Subl 0.4 Mg SL DIRECTED PRN 1 tablet under the tongue as needed for chest pain. Repeat every 5 minutes for a total of 3 DOSES or call 911 if NO relief. Levothyroxine (Levothyroxine Sodium) 50 Mcg Tab 50 Mcg PO DAILY Latanoprost Opth Drops (Latanoprost) 0.005% Drops 1 Drop EACH EYE HS Refrigerate until opened. Coreg (Carvedilol) 25 Mg Tab 12.5 Mg PO BID Aspirin Low Dose (Aspirin) 81 Mg Chew 81 Mg CHEW DAILY Amlodipine (Amlodipine Besylate) 10 Mg Tab 5 Mg PO DAILY Physical Exam Narrative GENERAL: Patient appears in no acute distress. SKIN: Warm and dry. Normal color. Normal turgor. Patient has a linear 1.5 cm full-thickness laceration to the left volar wrist. HEAD: Atraumatic. Normocephalic. EYES: Pupils equal and round. No scleral icterus. No injection or drainage. ENT: No nasal bleeding or discharge. Mucous membranes pink and moist. Pharynx is clear. Airway is patent. NECK: Trachea midline. No JVD. CARDIOVASCULAR: Regular rate and rhythm. RESPIRATORY: No accessory muscle use. Clear to auscultation. Breath sounds equal bilaterally. GASTROINTESTINAL: Abdomen soft, non-tender, nondistended. Hepatic and splenic margins not palpable. MUSCULOSKELETAL: Extremities without clubbing, cyanosis, or edema. No obvious deformities. NEUROLOGICAL: Awake and alert. No obvious cranial nerve deficits. Motor grossly within normal limits. Five out of 5 muscle strength in the arms and legs. Normal speech. PSYCHIATRIC: Appropriate mood and affect; insight and judgment normal. Data Data Last Documented VS Vital Signs Date Time Temp Pulse Resp B/P (MAP) Pulse Ox O2 Delivery O2 Flow Rate FiO2 03/20/17 13:59 98.0 61 16 159/89 (112) 99 Room Air Orders Orders Lidocai-Epi 2%-1:100,000 Inj (Xylocaine- (03/20/17 14:45) MDM Medical Decision Making Medical Screen Exam Complete: Yes Emergency Medical Condition: Yes Differential Diagnosis Laceration. Need for sutures. Accidental laceration Narrative Course Laceration repaired. Patient should keep dressing in place for the next 48 hours as discussed. Sutures should remain in place for at least 7-10 days. Patient can take Tylenol or ibuprofen as needed for pain Patient can follow-up with his PCP or return to emergency Department for suture removal. Procedures Procedure Narrative LACERATION LOCATION: Left volar wrist LENGTH: 2 cm NUMBER OF STITCHES/CATIE: 1 vertical mattress, 2 simple interrupted REPAIR: The area of the laceration was prepped with Betadine and sterilely draped. The laceration was infiltrated with 2.5 mL 2% lidocaine with epi. The wound was copiously irrigated and explored without evidence of foreign body, tendon injury or neurovascular injury. The wound was closed using 5-0 Prolene. This was a single layer repair. A sterile dressing was applied. The patient was advised to keep the dressing clean and dry. Patient tolerated the procedure well. Diagnosis Primary Impression: Laceration of left wrist without complication Qualified Codes: S61.512A - Laceration without foreign body of left wrist, initial encounter Referrals: Primary Care Physician Patient Instructions: Care For Your Stitches (ED), General Instructions Additional Instructions: Laceration repaired. Patient should keep dressing in place for the next 48 hours as discussed. Sutures should remain in place for at least 7-10 days. Patient can take Tylenol or ibuprofen as needed for pain Patient can follow-up with his PCP or return to emergency Department for suture removal. Med/Other Pt SpecificInfo: Wound Care Disposition: DISCHARGE HOME Condition: Stable Marin Do Mar 20, 2017 14:40
[2017-03-20] MEDS ORDERED: LIDOCAINE 2%/EPINEPHrine 1:100,000 20ML MDV NERV BLOCK ONE (14:45)
== END 2017-03-20 15:49 | disposition home or self-care (01) ==
LOC: NEPK 13:57
DX: S61.512A Laceration without foreign body of left wrist, initial encounter (principal); E78.00 Pure hypercholesterolemia, unspecified; K21.9 Gastro-esophageal reflux disease without esophagitis; I10 Essential (primary) hypertension; I25.2 Old myocardial infarction; E03.9 Hypothyroidism, unspecified; Y93.E9 Activity, other interior property and clothing maintenance; Y92.512 Supermarket, store or market as the place of occurrence of the external cause; Z87.442 Personal history of urinary calculi
CPT/HCPCS: 12001